=== PATIENT | female | born 1945 | race Caucasian/White ===

== ENCOUNTER → 2017-11-08 | Outpatient (CLI) | payer MEDICARE | LOC: M.RAD 14:08 | DX: M41.86 Other forms of scoliosis, lumbar region (principal); G95.89 Other specified diseases of spinal cord; Z79.811 Long term (current) use of aromatase inhibitors; Z85.3 Personal history of malignant neoplasm of breast ==

== ENCOUNTER → 2018-01-12 | Outpatient (CLI) | payer MEDICARE | LOC: M.RAD 13:00 | DX: R92.1 Mammographic calcification found on diagnostic imaging of breast (principal) ==

== ENCOUNTER → 2018-07-14 | Outpatient (CLI) | payer MEDICARE | LOC: M.RAD 12:22 | DX: Z12.31 Encounter for screening mammogram for malignant neoplasm of breast (principal) ==

== ENCOUNTER → 2019-07-16 | Outpatient (CLI) | payer MEDICARE | LOC: M.RAD 11:00 | DX: Z12.31 Encounter for screening mammogram for malignant neoplasm of breast (principal) ==

== ENCOUNTER → 2020-01-15 | Outpatient (CLI) | payer MEDICARE | LOC: M.RAD 10:27 | PROVIDERS: ATTEND Nurse Practitioner Family | DX: M85.88 Other specified disorders of bone density and structure, other site (principal); Z79.891 Long term (current) use of opiate analgesic ==

== ENCOUNTER → 2020-08-18 | Outpatient (CLI) | payer MEDICARE | LOC: M.RAD 14:18 | PROVIDERS: ATTEND Nurse Practitioner Family | DX: Z12.31 Encounter for screening mammogram for malignant neoplasm of breast (principal) ==

== ENCOUNTER → 2021-07-15 | Outpatient (CLI) | payer MEDICARE | LOC: M.RAD 13:34 | PROVIDERS: ATTEND Family Medicine | DX: Z12.31 Encounter for screening mammogram for malignant neoplasm of breast (principal); Z85.3 Personal history of malignant neoplasm of breast ==